=== PATIENT | female | born 1990 | race Caucasian/White ===

== ENCOUNTER 2022-08-10 16:10 | Inpatient (IN) | payer BC, OTHER ==
[2022-08-10] MEDS ORDERED: DINOPROSTONE 10 MG VAGINAL SUPPOSITORY VG ONE (16:52)
[2022-08-10] MEDS: ELECTROLYTE-148 SOLN 1,000 ML IV SCH (17:00)
[2022-08-10 17:02] VITALS: BMI 28.5
[2022-08-11] MEDS: ELECTROLYTE-148 SOLN 1,000 ML IV SCH (01:05)
[2022-08-11] MEDS ORDERED: BUTORPHANOL TARTRATE 2 MG/ML VIAL ONE (03:04)
[2022-08-11] MEDS ORDERED: PROMETHAZINE HCL 25 MG/1 ML VIAL ONE (03:04)
[2022-08-11] MEDS ORDERED: PROMETHAZINE HCL 25 MG/1 ML VIAL IVPB ONE (03:30)
[2022-08-11] MEDS ORDERED: BUTORPHANOL TARTRATE 1 MG/ML VIAL IVPB ONE (03:30)
[2022-08-11] MEDS ORDERED: FENTANYL/BUPIVACAINE/NS/PF - PCEA - 50 ML DISP.SYRIN EP ONE ×2 (05:43→10:30)
[2022-08-11] MEDS ORDERED: NALOXONE HCL 0.4 MG/ML VIAL IVPUSH PRN (05:48)
[2022-08-11] MEDS ORDERED: OXYTOCIN 30 UNITS in 0.9% NS 30 UNIT/500 ML INFUS.BAG IVPB SCH (06:00)
[2022-08-11] MEDS: FENTANYL/BUPIVACAINE/NS/PF - PCEA - 50 ML DISP.SYRIN EP SCH ×2 (06:05→10:40)
[2022-08-11] MEDS ORDERED: LIDO 2%/EPI 1:200000 PRESRVFRE (20 ML SDVIAL) ONE (06:24)
[2022-08-11] MEDS ORDERED: OXYTOCIN 30 UNITS in 0.9% NS 30 UNIT/500 ML INFUS.BAG IVPB ONE (08:04)
[2022-08-11] MEDS ORDERED: OXYTOCIN 20 UNITS in 0.9% NS 20 UNIT/1,000 ML INFUS.BAG IV ONE (10:53)
[2022-08-11] MEDS ORDERED: LIDOCAINE HCL 1% PRESERVATIVE FREE - 30ML VIAL ONE (10:53)
[2022-08-11] MEDS ORDERED: METHYLERGONOVINE MALEATE 0.2 MG/1 ML AMP IM PRN (15:01)
[2022-08-11] MEDS ORDERED: BISACODYL 10 MG SUPP.RECT RC PRN (15:01)
[2022-08-11] MEDS ORDERED: WITCH HAZEL 50% (TUCKS) 40 PAD/JAR PAD TP PRN (15:01)
[2022-08-11] MEDS ORDERED: ACETAMINOPHEN 325 MG TABLET (FP) PO PRN (15:01)
[2022-08-11] MEDS ORDERED: BENZOCAINE 20% 57 GM BOTTLE TP PRN (15:01)
[2022-08-11] MEDS ORDERED: BENZOCAINE 28 GM HEMORRHOIDAL OINTMENT TP PRN (15:01)
[2022-08-11] MEDS ORDERED: oxyCODONE HCL 5 MG TABLET PO PRN (15:01)
[2022-08-11] MEDS ORDERED: OXYTOCIN 20 UNITS in 0.9% NS 20 UNIT/1,000 ML INFUS.BAG IV SCH (15:15)
[2022-08-11] MEDS: IBUPROFEN 600 MG TABLET (FP) PO PRN (16:40)
[2022-08-12] MEDS: ELECTROLYTE-148 SOLN 1,000 ML IV SCH (00:32)
[2022-08-12 07:46] LABS: BASO % 0.4 % (0-2.0); EOS % 0.8 % (0-4.5); HEMATOCRIT 31.5 % (32.4-45.2); HEMOGLOBIN 11.1 GM/dL (10.7-15.3); LYMPH % 10.4 % (8-40); MCHC 35.2 g/dl (32.0-36.0); MEAN CELL VOLUME 90.8 fl (80-96); MONO % 5.4 % (3.8-10.2); PLATELET COUNT 188 10^3/uL (134-434); RBC 3.47 M/mm3 (3.60-5.2); RDW 13.6 % (11.6-15.6); WHITE BLOOD COUNT 9.9 K/mm3 (4.0-10.0)
[2022-08-12] MEDS: IBUPROFEN 600 MG TABLET (FP) PO PRN (18:04)
[2022-08-12] MEDS ORDERED: SENNOSIDES/DOCUSATE COMBO (SENNA PLUS) TABLET (UD) PO PRN (22:00)
[2022-08-13 09:54] VITALS: BP 130/86; PULSE 72; RESP 16; TEMP 98.8
== END 2022-08-13 12:40 | disposition home or self-care (01) | DRG 807 ==
LOC: JLDR 16:10 → J3W 08-11 15:30
PROVIDERS: ADMIT Specialist; ATTEND Specialist
PROC: 10E0XZZ Delivery of Products of Conception, External Approach (ICD-10-PCS; principal; 2022-08-11)
PROC: 0W8NXZZ Division of Female Perineum, External Approach (ICD-10-PCS; 2022-08-11)
PROC: 3E0P7VZ Introduction of Hormone into Female Reproductive, Via Natural or Artificial Opening (ICD-10-PCS; 2022-08-11)
PROC: 10907ZC Drainage of Amniotic Fluid, Therapeutic from Products of Conception, Via Natural or Artificial Opening (ICD-10-PCS; 2022-08-11)
DX: O66.0 Obstructed labor due to shoulder dystocia (principal); O77.0 Labor and delivery complicated by meconium in amniotic fluid; Z37.0 Single live birth; Z3A.40 40 weeks gestation of pregnancy
CPT/HCPCS: 36415; 59409; 71045-TC-FY; 85025

== ENCOUNTER 2023-11-14 18:15 | Inpatient (IN) | payer OTHER ==
[2023-11-14 18:38] VITALS: BMI 28.5
[2023-11-14] MEDS ORDERED: PROMETHAZINE HCL 25 MG/1 ML VIAL IVPB PRN (18:42)
[2023-11-14] MEDS ORDERED: BUTORPHANOL TARTRATE 1 MG/ML VIAL IVPB PRN (18:42)
[2023-11-14] MEDS ORDERED: LACTATED RINGERS SOLUTION 1,000 ML/1,000 ML INFUS.BAG IV SCH (18:45)
[2023-11-14 20:13] LABS: BASO % 0.4 % (0-2.0); EOS % 0.5 % (0-4.5); HEMATOCRIT 38.6 % (32.4-45.2); HEMOGLOBIN 12.9 GM/dL (10.7-15.3); LYMPH % 11.9 % (8-40); MCH 29.1 pg (25.7-33.7); MCHC 33.5 g/dl (32.0-36.0); MEAN CELL VOLUME 86.7 fl (80-96); MEAN PLT VOLUME 8.1 fl (7.5-11.1); MONO % 5.4 % (3.8-10.2); NEUT % 81.8 % (42.8-82.8); PLATELET COUNT 265 10^3/uL (134-434); RBC 4.46 M/mm3 (3.60-5.2); RDW 14.1 % (11.6-15.6); WHITE BLOOD COUNT 8.7 K/mm3 (4.0-10.0)
[2023-11-14 20:14] LABS: BASO % 0.3 % (0-2.0); EOS % 0.4 % (0-4.5); HEMATOCRIT 38.7 % (32.4-45.2); LYMPH % 12.1 % (8-40); MCH 29.1 pg (25.7-33.7); MCHC 33.5 g/dl (32.0-36.0); MEAN CELL VOLUME 86.8 fl (80-96); MONO % 5.6 % (3.8-10.2); NEUT % 81.6 % (42.8-82.8); PLATELET COUNT 254 10^3/uL (134-434); RBC 4.46 M/mm3 (3.60-5.2); RDW 13.9 % (11.6-15.6); WHITE BLOOD COUNT 8.7 K/mm3 (4.0-10.0)
[2023-11-14 20:21] LABS: PROTHROMBIN TIME (PATIENT) 11.6 SEC (9.7-13.0)
[2023-11-14 20:24] LABS: ACTIVATED PTT 27.5 SECONDS (25.2-36.5)
[2023-11-14] MEDS ORDERED: LIDOCAINE HCL 1% PRESERVATIVE FREE - 30ML VIAL ONE (20:32)
[2023-11-14] MEDS ORDERED: FENTANYL/BUPIVACAINE/NS/PF - PCEA - 50 ML DISP.SYRIN EP ONE (20:32)
[2023-11-14] MEDS ORDERED: OXYTOCIN 20 UNITS in 0.9% NS 20 UNIT/1,000 ML INFUS.BAG IV ONE (20:32)
[2023-11-14 20:33] LABS: POTASSIUM 3.9 mmol/L (3.5-5.1)
[2023-11-14 20:34] LABS: CALCIUM 8.6 mg/dL (8.5-10.1)
[2023-11-14 20:35] LABS: BLOOD UREA NITROGEN 10.3 mg/dL (7-18); CALCIUM 8.5 mg/dL (8.5-10.1)
[2023-11-14] MEDS ORDERED: FENTANYL CITRATE/PF 50 MCG/ML VIAL ONE (20:35)
[2023-11-14 20:36] LABS: BLOOD UREA NITROGEN 10.1 mg/dL (7-18)
[2023-11-14 20:38] LABS: CREATININE 0.5 mg/dL (0.55-1.3)
[2023-11-14 20:39] LABS: CREATININE 0.5 mg/dL (0.55-1.3)
[2023-11-14] MEDS: FENTANYL/BUPIVACAINE/NS/PF - PCEA - 50 ML DISP.SYRIN EP SCH (20:50)
[2023-11-14] MEDS ORDERED: NALOXONE HCL 0.4 MG/ML VIAL IVPUSH PRN (21:06)
[2023-11-14 22:53] LABS: HIV INTERPRETATION NEGATIVE (NEGATIVE)
[2023-11-15] MEDS ORDERED: FENTANYL/BUPIVACAINE/NS/PF - PCEA - 50 ML DISP.SYRIN EP ONE (00:52)
[2023-11-15] MEDS: FENTANYL/BUPIVACAINE/NS/PF - PCEA - 50 ML DISP.SYRIN EP SCH (00:55)
[2023-11-15] MEDS ORDERED: IBUPROFEN 600 MG TABLET (FP) PO PRN (03:20)
[2023-11-15] MEDS ORDERED: ACETAMINOPHEN 325 MG TABLET (FP) PO PRN (03:20)
[2023-11-15] MEDS ORDERED: BENZOCAINE 20% 57 GM BOTTLE TP PRN (03:20)
[2023-11-15] MEDS ORDERED: BENZOCAINE 28 GM HEMORRHOIDAL OINTMENT TP PRN (03:20)
[2023-11-15] MEDS ORDERED: oxyCODONE HCL 5 MG TABLET PO PRN (03:20)
[2023-11-15] MEDS ORDERED: METHYLERGONOVINE MALEATE 0.2 MG/1 ML AMP IM PRN (03:20)
[2023-11-15] MEDS ORDERED: BISACODYL 10 MG SUPP.RECT RC PRN (03:20)
[2023-11-15] MEDS ORDERED: WITCH HAZEL 50% (TUCKS) 40 PAD/JAR PAD TP PRN (03:20)
[2023-11-15] MEDS ORDERED: OXYTOCIN 20 UNITS in 0.9% NS 20 UNIT/1,000 ML INFUS.BAG IV SCH (03:30)
[2023-11-15] MEDS: PRENATAL VITAMINS W/ FOLIC ACID TABLET (FP) PO SCH (09:52)
[2023-11-16 02:36] VITALS: RESP 18
[2023-11-16 07:07] LABS: BASO % 0.7 % (0-2.0); EOS % 1.3 % (0-4.5); HEMOGLOBIN 12.1 GM/dL (10.7-15.3); LYMPH % 14.4 % (8-40); MCH 29.4 pg (25.7-33.7); MCHC 33.7 g/dl (32.0-36.0); MEAN CELL VOLUME 87.4 fl (80-96); MEAN PLT VOLUME 7.8 fl (7.5-11.1); MONO % 5.7 % (3.8-10.2); NEUT % 77.9 % (42.8-82.8); PLATELET COUNT 225 10^3/uL (134-434); RBC 4.12 M/mm3 (3.60-5.2); RDW 14.3 % (11.6-15.6); WHITE BLOOD COUNT 8.3 K/mm3 (4.0-10.0)
[2023-11-16] MEDS: PRENATAL VITAMINS W/ FOLIC ACID TABLET (FP) PO SCH (11:02)
[2023-11-16] MEDS ORDERED: SENNOSIDES/DOCUSATE COMBO (SENNA PLUS) TABLET (UD) PO PRN (22:00)
[2023-11-17 10:08] VITALS: BP 111/73; PULSE 73; TEMP 98.2
[2023-11-17] MEDS: PRENATAL VITAMINS W/ FOLIC ACID TABLET (FP) PO SCH (10:10)
== END 2023-11-17 12:10 | disposition home or self-care (01) | DRG 807 ==
LOC: JDEL 18:15 → JLDR 18:23 → J3W 11-15 05:48
PROVIDERS: ADMIT Obstetrics & Gynecology; ATTEND Obstetrics & Gynecology
PROC: 10E0XZZ Delivery of Products of Conception, External Approach (ICD-10-PCS; principal; 2023-11-15)
PROC: 0HQ9XZZ Repair Perineum Skin, External Approach (ICD-10-PCS; 2023-11-15)
DX: O70.0 First degree perineal laceration during delivery (principal); Z37.0 Single live birth; Z3A.39 39 weeks gestation of pregnancy
CPT/HCPCS: 36415; 80048; 85025; 85610; 85730; 86780; 86850; 86900; 86901; 87389